=== PATIENT | male | born 1995 | race American Indian/Alaskan Native ===

== ENCOUNTER 2021-10-16 14:02 | Emergency (ER) | payer SELFPAY ==
[2021-10-16 14:26] VITALS: BP 119/75
== END 2021-10-16 20:45 | disposition left against medical advice (07) ==
LOC: ED 14:02
DX: R50.9 Fever, unspecified (principal); R21 Rash and other nonspecific skin eruption; Z53.21 Procedure and treatment not carried out due to patient leaving prior to being seen by health care provider